=== PATIENT | male | born 2000 | race African-American/Black ===

== ENCOUNTER 2021-12-21 14:23 | Emergency (ER) | payer OTHER ==
[~2021-12-21] VITALS: Ht 188 cm; Wt 73.0 kg
[2021-12-21] MEDS ORDERED: ONDANSETRON HCL 4MG/2ML INJ IV STA (14:29)
[2021-12-21] MEDS ORDERED: SODIUM CHLORIDE 0.9% 1,000 ML IV ONE (14:30)
[2021-12-21] MEDS ORDERED: MORPHINE SULFATE 4 MG/ML CPJ (NOT FOR IM USE) IV ONE (14:30)
[2021-12-21] MEDS ORDERED: TETANUS, DIPHTHERIA, PERTUSSIS VAC/PF 0.5ML (>10YR OLD) IM ONE (14:30)
[2021-12-21 14:46] LABS: BASOPHILS % 0.7 % (0.0-2.0); EOSINOPHILS % 0.8 % (0.0-5.0); HEMATOCRIT. 44.8 % (42.0-52.0); HEMOGLOBIN. 15.6 g/dL (14.0-18.0); LYMPHOCYTES % 38.6 % (20.0-50.0); MEAN CORPUSCULAR HEMOGLOBIN 30.2 pg (28.0-32.0); MEAN CORPUSCULAR VOLUME 86.6 fL (80.0-94.0); MEAN PLATELET VOLUME 7.6 fl (7.4-10.4); MONOCYTES % 13.4 % (2.0-8.0); NEUTROPHILS % 46.5 % (40.0-76.0); PLATELET 366 x1000/uL (130-400); RED BLOOD CELL COUNT 5.17 mill/uL (4.7-6.1); RED CELL DISTRIBUTION WIDTH 13.2 % (11.6-14.6)
[2021-12-21 14:57] LABS: CHLORIDE 104 mEq/L (98-107)
[2021-12-21] MEDS ORDERED: IBUP-2029 MT (17:03)
[2021-12-21] MEDS ORDERED: HYDR-4001 MT (17:03)
[2021-12-21] MEDS ORDERED: BACITRACIN 15GM TUBE TOP ONE (17:15)
[2021-12-21] MEDS ORDERED: IOHEXOL-350 100 ML BOTTLE ONE (17:52)
[2021-12-21 19:00] VITALS: BP 168/89
== END 2021-12-21 19:30 | disposition home or self-care (01) ==
LOC: ER 14:23
DX: S71.131A Puncture wound without foreign body, right thigh, initial encounter (principal); X93.XXXA Assault by handgun discharge, initial encounter; Y93.89 Activity, other specified; Y92.488 Other paved roadways as the place of occurrence of the external cause
CPT/HCPCS: 36415; 71045; 72170; 73706; 80053; 83690; 85025; 86850; 86900; 86901; 90471; 90715; 96361; 96374; 96375; 99285; J2270; J2405; J7030; Q9967; Z7610